=== PATIENT | female | born 1995 | race Caucasian/White ===

== ENCOUNTER 2021-06-03 07:41 | Emergency (ER) | payer OTHER ==
[~2021-06-03 07:41] MED LIST: BACLOFEN 10MG T10 MG PO
[2021-06-03 08:48] LABS: BASOPHIL 0.3 % (0-2); EOSINOPHIL 2.9 % (0-5); HCT 38.2 % (37.0-47.0); HGB 12.9 g/dl (12.5-16.0); LYMPHOCYTE 46.3 % (15-48); MCH 31.5 pg (25.0-31.0); MCHC 33.8 g/dL (32.0-36.0); MCV 93.2 fL (78.0-100.0); MONOCYTE 7.3 % (0-12); NEUTROPHIL 42.9 % (41-80); NRBC 0; PLT 313 K/uL (150-400); RDW 12.4 % (11.5-14.0); WBC 6.1 K/uL (4.0-10.5)
[2021-06-03 08:56] LABS: ALBUMIN 4.1 g/dL (3.4-5.0); BILIRUBIN - TOTAL 0.2 mg/dL (0.2-1.0); BUN/CREAT RATIO (CALC) 21.3 RATIO; CREATININE 0.75 mg/dL (0.51-0.95); GLOBULIN (CALCULATION) 3.1 g/dL; POTASSIUM 3.7 mmol/L (3.5-5.1); TOTAL PROTEIN 7.2 g/dL (6.4-8.2)
[2021-06-03 09:13] LABS: BILIRUBIN NEGATIVE (NEGATIVE); BLOOD 1+ Ery/uL (NEGATIVE); CLARITY CLEAR (CLEAR); COLOR YELLOW (YELLOW); GLUCOSE (U) NORMAL (NORMAL); LEUKOCYTES TRACE Leu/uL (NEGATIVE); NITRITE NEGATIVE (NEGATIVE); PROTEIN NEGATIVE (NEGATIVE); UROBILINOGEN 0.2 mg/dL (0.2-1.0)
[2021-06-03 09:26] LABS: BACTERIA 1+; URINARY RBC RARE; URINARY WBC RARE
[2021-06-03 09:48] LABS: CORONAVIRUS 2019 SARS-COV-2 NEGATIVE (NEGATIVE); INFLUENZA A NAA NEGATIVE (NEGATIVE)
== END 2021-06-03 09:46 | disposition home or self-care (01) ==
LOC: FER 07:41
PROVIDERS: Emergency Medicine
DX: R07.89 Other chest pain (principal); M54.9 Dorsalgia, unspecified; Z20.822 Contact with and (suspected) exposure to COVID-19
CPT/HCPCS: 36415; 71045; 80053; 81001; 84484; 85025; U0002

== ENCOUNTER 2021-12-22 14:24 | Emergency (ER) | payer OTHER ==
[2021-12-22] MEDS ORDERED: MEDROL 4MG DOSEP4 MG PO (20:55)
[2021-12-22] MEDS ORDERED: CYCLOBENZAPRINE10 MG PO (20:55)
== END 2021-12-22 20:45 | disposition home or self-care (01) ==
LOC: FER 14:24
DX: S39.012A Strain of muscle, fascia and tendon of lower back, initial encounter (principal); S83.92XA Sprain of unspecified site of left knee, initial encounter
CPT/HCPCS: 73560; J1885